=== PATIENT | female | born 1970 | race Caucasian/White ===

== ENCOUNTER 2024-01-24 12:54 | Outpatient (AMB) | payer OTHER, SELFPAY ==
--- NOTE | 2024-01-24 13:22 | MHC.PC.OV ---
Vital Signs 01/24/24 13:29 Height 5 ft 7 in Weight 249 lb 2 oz BMI 39.0 BP 134/78 Blood Pressure Location Rt radial Position Sitting Respiration 16 Pulse 92 Pulse Source Pulse Oximeter Temp 98.4 F Temp Source Oral Pulse Oximetry (%) 98 Oxygen Delivery Method Room Air Intake Visit Reasons: [employer] 2 month F/U difficulty losing weight Intake Note: New patient visit. 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: No Allergies Penicillins Allergy (Unknown, Verified 01/24/24 13:24) Rash ibuprophen Allergy (Unknown, Uncoded 01/24/24 13:25) Rash Medication List - Last Reconciled 01/24/24 by Maribell Fleming PA-C semaglutide (Rybelsus) 3 mg PO DAILY 30 days Tobacco use date assessed: 01/24/24 Dental Screening Dental Screen Date: 01/24/24 Did you have a dental visit in the last 12 months?: Yes Did you have a dental problem in the last 6 months where you did not have access to dental care?: No Was dental information given to patient?: Patient has dentist HPI [employer] 2 month F/U difficulty losing weight HPI Details Patient is a 53-year-old female with a significant past medical history of anxiety, SVT S/P ablation 1999 and obesity presenting [facility]. She is transferring from [facility]. -She mostly made this appointment because she is having a very hard time losing weight. She has tried everything from following with functional medicine, low carb, high intensity cardio, weight training, calorie counting and intermittent fasting. CV: bp today is 134/78. denies any chest pain or sob. History of SVT and very sensitive to medications but recently saw [facility] cardiology and states that her court registry officer told her it would be okay to take Ozempic for weight loss. We have discussed this numerous times over the last year or so and she has been hesitant but tells me today that she wants to try this but only wants to take the pill version. She states that she wants to see if her insurance will cover because she is so worried about her SVT and triggering this that she would feel better if she took a pill as opposed to taking a once a week injection and having a longer half-life of the drug in her system. She states her court registry officer thought that this would maybe be beneficial for her as well. She has not had to use any metoprolol. She had an ablation in 1999 and has not needed 1 since then. Psych: Anxiety is mostly medical anxiety regarding the SVT. She has a hard time taking medications and states that this gives her a lot of stress because she is worried about having palpitations. She did not like how it felt that time that she had SVT. She also just feels down about her weight and states that she would feel better if she could lose weight. Hris Developer: she is perimenopausal, follows with Dr. Farrell. Mammogram: overdue Pap: Up-to-date Colonoscopy: cologuard was ordered and at her house.: [facility] Medical History (Updated 01/24/24 @ 13:50 by Maribell Fleming PA-C) Perimenopausal Obesity (BMI 35.0-39.9 without comorbidity) Anxiety GERD (gastroesophageal reflux disease) Eczema Migraine H/O supraventricular tachycardia Palpitation Asthma Surgical History (Updated 01/24/24 @ 13:42 by Adelina Cotto CMA) H/O section Family History (Updated 01/24/24 @ 13:40 by Adelina Cotto CMA) Father HTN (hypertension) Social History Housing: House Patient Tobacco Use Status: Former Tobacco user Years Smoked: High school years e-Cigarette/Vaping Use: Never Used service: No Current occupational status: employed 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 1. Little interest or pleasure in doing things: not at all 2. Feeling down, depressed, or hopeless: several days 3. Trouble falling or staying asleep, or sleeping too much: several days 4. Feeling tired or having little energy: several days 5. Poor appetite or overeating: several days 6. Feeling bad about yourself - or that you are a failure or have let yourself or your family down: not at all 7. Trouble concentrating on things, such as reading the newspaper or watching television: not at all 8. Moving or speaking so slowly that other people could have noticed. Or the opposite - being so fidgety or restless that you have been moving around a lot more than usual: not at all 9. Thoughts that you would be better off or of hurting yourself in some way: not at all Total score: 4 Depression Screening Interpretation: Positive (Reports this as related to her weight) Depression Screening Follow-up: Declines treatment Depression Screening Done: Yes 33584 - PHQ-9 Billing: Yes Source: Developed by Drs. John Dempsey, Celina Davey, Mehdi Jarrell and colleagues, with an educational nadine from [employer]. Thrive Questionnaire Date Thrive assessed: 01/24/24 I am a: Patient What is your living situation today?: I have a steady place to live Within the past 12 months, did the food you bought not last and you didn't have the money to get more?: Never true Within the past 12 months, did you worry whether your food would run out before you got money to buy more?: Never true Do you have trouble paying for medicines?: No Do you have trouble getting transportation to medical appointments?: No Do you have trouble paying your heating and electricity bill?: No Do you have trouble taking care of your child, family member or friend?: No Do you have trouble with day-to-day activities such as bathing, preparing meals, shopping, managing finances, etc.?: No Are you currently unemployed and looking for a job?: No Are you interested in more education?: No Please select the resources that you would like help with: None Currently or been in a relationship where the following occur: no concerns reported THRIVE Score: 0 AUDIT C Alcohol Use Questionnaire (AUDIT-C) 1. How often do you have a drink containing alcohol?: 2-3 times a week 2. How many drinks containing alcohol do you have on a typical day when you are drinking?: 3 or 4 3. How often do you have six or more drinks on one occasion?: Less than monthly Total Score: 5 HEMANTH-7 AMB Questionnaire HEMANTH-7 Date HEMANTH - 7 assessed: 01/24/24 Feeling nervous, anxious, or on edge: 1 = Several days Not being able to stop or control worryin = Several days Worrying too much about different things: 1 = Several days Trouble relaxin = Several days Being so restless that it is hard to sit still: 0 = Not at all Becoming easily annoyed or irritable: 0 = Not at all Feeling afraid as if something awful might happen: 1 = Several days Total HEMANTH-7 score (0-4 normal; 5-9 mild; 10-14 moderate; 15-21 severe): 5 Source: Developed by Drs. John Dempsey, Celina Davey, Mehdi Jarrell and colleagues, with an educational nadine from [employer]. HEMANTH-7 Assessment Billing HEMANTH-7 Assessment Tool: HEMANTH-7 Assessment 52921 Physical exam (Primary Care) Vital Signs: Last Vital Signs Temp 98.4 F 01/24/24 13:29 Pulse 92 01/24/24 13:29 Resp 16 01/24/24 13:29 BP 134/78 01/24/24 13:29 Pulse Ox 98 01/24/24 13:29 Oxygen Delivery Method Room Air 01/24/24 13:29 BMI result Body Mass Index 39.0 Tobacco/Smoking Status: Tobacco use Status Tobacco use date assessed 01/24/24 01/24/24 13:33 Patient Tobacco Use Status Former Tobacco user 01/24/24 13:33 e-Cigarette/Vaping Use Never Used 01/24/24 13:33 Depression Screening Interpretation: Positive (Reports this as related to her weight) Depression Screening Follow-up: Declines treatment Currently or been in a relationship where the following occur: no concerns reported Const Orientation/consciousness: patient oriented x3 HENMT Ears: hearing grossly normal bilaterally Neck Thyroid: Thyroid normal Lymphatic: no lymphadenopathy noted Resp Auscultation: clear to auscultation bilaterally Cardio Rate: regular rate Rhythm: regular rhythm Heart sounds: S1 normal heart sound present and S2 normal heart sound present GI Inspection: Yes normal to inspection Palpation (GI): Soft to palpation and Other GI palpation findings present (nontender, no cva tenderness) Auscultation: normoactive bowel sounds Rectal Exam - Female: deferred Skin General skin exam: no rashes or lesions noted Neuro General: patient oriented x3, gait normal and no focal motor deficits Assessment and Plan Assessment & Plan (1) Obesity (BMI 35.0-39.9 without comorbidity): Code(s): E66.9 - Obesity, unspecified Plan: We will try rybelsus Discussed risks and benefits and adverse effects of this medication. She will let me know if it does not get covered. (2) H/O supraventricular tachycardia: Code(s): Z86.79 - Personal history of other diseases of the circulatory system Plan: stable (3) Perimenopausal: Code(s): N95.1 - Menopausal and female climacteric states Plan: follows with Dr. Farrell Plan labs ordered. will follow up in 3 months or sooner prn. pt understands and agrees wtih the plan. Orders: Orders Complete Blood Count Auto Diff Today E66.9 - Obesity, unspecified, N95.1 - Menopausal and female climacteric states, Z86.79 - Personal history of other diseases of the circulatory system Comprehensive Met. Panel Today E66.9 - Obesity, unspecified, N95.1 - Menopausal and female climacteric states, Z86.79 - Personal history of other diseases of the circulatory system Lipid Panel Today E66.9 - Obesity, unspecified, N95.1 - Menopausal and female climacteric states, Z86.79 - Personal history of other diseases of the circulatory system MM screening mammo BI Today Z12.31 - Encounter for screening mammogram for malignant neoplasm of breast TSH reflex Free T4 Today E66.9 - Obesity, unspecified, N95.1 - Menopausal and female climacteric states, Z86.79 - Personal history of other diseases of the circulatory system Medications: New semaglutide (Rybelsus) 3 mg PO DAILY 30 days 30 tabs 1RF Coding Level of Care Code Est Pt Level 4 (18645) Complex EM visit Add On G2211 Diagnoses Obesity (BMI 35.0-39.9 without comorbidity) E66.9 H/O supraventricular tachycardia Z86.79 Perimenopausal N95.1 Additional Codes HEMANTH-7 Assessment Billing - HEMANTH-7 Assessment Tool: HEMANTH-7 Assessment 54915 ([id number])
[2024-01-24 13:29] VITALS: BP 134/78; PULSE 92; RESP 16; TEMP 36.9; O2SAT 98; BMI 39.0
== END 2024-01-24 13:59 | disposition home or self-care (01) ==
PROVIDERS: PCP Physician Assistant; Visit Provider Physician Assistant
DX: N95.1 Menopausal and female climacteric states (principal); E66.9 Obesity, unspecified; Z86.79 Personal history of other diseases of the circulatory system; Z68.39 Body mass index [BMI] 39.0-39.9, adult
CPT/HCPCS: 99214; G2211